=== PATIENT | female | born 1975 | race Caucasian/White ===

== ENCOUNTER 2022-09-13 10:40 | Emergency (ER) | payer BC ==
[~2022-09-13] VITALS: Ht 162.6 cm; Wt 77.1 kg
[2022-09-13 10:40] VITALS: BP_SYST 125
== END 2022-09-13 12:06 | disposition left against medical advice (07) ==
LOC: SED 10:40
DX: J33.9 Nasal polyp, unspecified (principal); R06.02 Shortness of breath; J34.89 Other specified disorders of nose and nasal sinuses; Z79.899 Other long term (current) drug therapy
CPT/HCPCS: 70486-TC; 76376; 99284